=== PATIENT | female | born 1990 | race Caucasian/White ===

== ENCOUNTER → 2021-02-23 | Outpatient (CLI) | payer OTHER ==
--- NOTE | 2021-02-25 08:43 | ECHO ---
ECHOCARDIOGRAM DATE OF PROCEDURE: 02/23/2021 Age: 30 Gender: Female Height: 61 inches Weight: 121 pounds Body surface area: 1.52 m2 PATIENT LOCATION: Outpatient. REFERRING PHYSICIAN: Karli Guerrero M.D. INDICATION: Family history of congenital heart disease. MEASUREMENTS: 2D Measurements: RV - 2.8 cm LV - 3.6 cm Septum 0.9 cm Posterior wall 0.9 cm Aortic root 3.1 cm LA - 3.0 cm LVEF 75% Doppler Measurements: AV - 1.31 m/sec LVOT - 0.95 m/sec LVOT diameter 2.0 cm MV-E 90, A 85, EA ratio 1.1 Early mitral deceleration time 143 msec E prime medial 10.2 A prime medal 13.9 E prime lateral 15.6 PV - 0.9 m/sec Pulmonary artery acceleration time 158 msec PASP 12 mmHg IVC - 1.3 cm COMMENTS: Normal sinus rhythm without interventricular conduction disturbance. M-mode and 2-dimensional echocardiography was performed with pulse, continuous wave, color flow and tissue Doppler studies. Normal left ventricular size and wall thickness and hyperkinetic wall motion. Normal left atrial size and Doppler assessment of left ventricular (LV) diastolic function and estimated mean left atrial pressure. Normal right heart chamber sizes and motion and estimated pulmonary arterial pressure. Normal inferior vena cava (IVC) size and collapse against an elevated central venous pressure. Normal aortic dimensions. Normal appearing and functioning aortic valve. Normal appearing and functioning mitral valve with very mild insufficiency (physiologic). Normal appearing tricuspid valve. No apparent intracardiac mass or pericardial effusion. Some thinning of the mid portion of the interatrial septum, but could not clearly visualize a patent foramen ovale or septal defect. No other evidence in intracardiac shunting.
== END ==
LOC: M CARPUL 11:39
PROVIDERS: ATTEND Family Medicine
DX: Q24.9 Congenital malformation of heart, unspecified (principal)

== ENCOUNTER → 2021-06-05 | Outpatient (REF) | payer OTHER | LOC: M LAB REF 21:02 | PROVIDERS: ATTEND Family Medicine | DX: J01.90 Acute sinusitis, unspecified (principal) ==

== ENCOUNTER → 2024-09-27 | Outpatient (REF) | payer OTHER ==
[2024-09-27 13:32] LABS: APPEARANCE, URINE HAZY (CLEAR); BACTERIA, URINE AUTO 1+ (NEGATIVE); BILIRUBIN, URINE AUTO NEGATIVE (NEGATIVE); BLOOD, URINE BLOOD 1+ (NEGATIVE); COLOR, URINE YELLOW (YELLOW); GLUCOSE, URINE (UA) AUTO NEGATIVE (NEGATIVE); KETONE, URINE AUTO NEGATIVE (NEGATIVE); LEUKOCYTE ESTERASE, URINE AUTO 1+ (NEGATIVE); MUCUS, URINE SMALL (NEGATIVE); NITRITE, URINE AUTO NEGATIVE (NEGATIVE); PROTEIN, URINE AUTO NEGATIVE (NEGATIVE); RBC, URINE AUTO 27 /HPF (0-3); SPECIFIC GRAVITY URINE AUTO 1.018 (1.002-1.035); SQUAMOUS EPITHELIAL CELL UR AU 7 /HPF (0-6); UROBILINOGEN, URINE AUTO 0.2 mg/dL (0.0-2.0); WBC, URINE AUTO 12 /HPF (0-3)
[2024-09-27 14:12] LABS: Trichomonas vaginalis (AMP) POSITIVE (NEGATIVE)
[2024-09-27 14:46] LABS: GC DNA AMPLIFICATION NEGATIVE (NEGATIVE)
== END ==
LOC: M LAB REF 12:31
PROVIDERS: ATTEND Physician Assistant Medical
DX: N39.0 Urinary tract infection, site not specified (principal)

== ENCOUNTER → 2024-11-05 | Outpatient (REF) | payer OTHER ==
[2024-11-05 14:12] LABS: Trichomonas vaginalis (AMP) NOT DETECTED (NEGATIVE)
[2024-11-05 14:36] LABS: GC DNA AMPLIFICATION NEGATIVE (NEGATIVE)
== END ==
LOC: M LAB REF 12:11
PROVIDERS: ATTEND Physician Assistant
DX: Z20.2 Contact with and (suspected) exposure to infections with a predominantly sexual mode of transmission (principal)

== ENCOUNTER → 2025-01-31 | Outpatient (CLI) | payer OTHER ==
[2025-01-31 10:30] LABS: BASO # 0.1 10^3/uL (0.0-0.2); BASO % 0.8 % (0.0-1.0); EOS # 0.1 10^3/uL (0.0-0.5); EOS % 1.0 % (0.0-3.0); LYMPH # 1.2 10^3/uL (1.5-5.0); LYMPH % 14.9 % (24.0-44.0); MONO # 0.5 10^3/uL (0.0-0.8); MONO % 6.2 % (2.0-8.0); NEUTROPHILS # 6.1 10^3/uL (1.5-8.5); NEUTROPHILS % 76.8 % (36.0-66.0); PLATELET COUNT, AUTOMATED 146 10^3/uL (150-450)
[2025-01-31 10:45] LABS: ESTIMATED AVERAGE GLUCOSE 94.0 MG/DL (60-110)
[2025-01-31 10:59] LABS: CHOLESTEROL LEVEL 175.0 MG/DL (<200); CHOLESTEROL RISK RATIO 2.14 (<5); IRON (FE) 50.0 UG/DL (50-170); LDL CHOLESTEROL 82.9 MG/DL (<100); NON-HDL-C 93.5 MG/DL; PERCENT SATURATION 13.1 % (13.2-45.0); TRIGLYCERIDES LEVEL 53.0 MG/DL (<150)
[2025-01-31 11:00] LABS: FREE T4 1.32 NG/DL (0.89-1.76)
[2025-01-31 11:01] LABS: TOTAL 25(OH) VITAMIN D 36.4 NG/ML (20.0-100.0)
[2025-01-31 11:02] LABS: VITAMIN B12 LEVEL 722.0 PG/ML (211-911)
== END ==
LOC: M LAB 09:51
PROVIDERS: ATTEND Physician Assistant
DX: E55.9 Vitamin D deficiency, unspecified (principal); Z13.29 Encounter for screening for other suspected endocrine disorder; Z13.220 Encounter for screening for lipoid disorders; Z13.0 Encounter for screening for diseases of the blood and blood-forming organs and certain disorders involving the immune mechanism

== ENCOUNTER → 2025-03-23 | Outpatient (REF) | payer OTHER | LOC: M LAB REF 10:10 | PROVIDERS: ATTEND Physician Assistant | DX: B37.31 Acute candidiasis of vulva and vagina (principal) ==

== ENCOUNTER → 2025-07-05 | Outpatient (REF) | payer OTHER ==
[2025-07-05 18:35] LABS: APPEARANCE, URINE HAZY (CLEAR); BACTERIA, URINE AUTO 1+ (NEGATIVE); BILIRUBIN, URINE AUTO NEGATIVE (NEGATIVE); BLOOD, URINE BLOOD NEGATIVE (NEGATIVE); GLUCOSE, URINE (UA) AUTO NEGATIVE (NEGATIVE); KETONE, URINE AUTO NEGATIVE (NEGATIVE); LEUKOCYTE ESTERASE, URINE AUTO 1+ (NEGATIVE); MUCUS, URINE SMALL (NEGATIVE); NITRITE, URINE AUTO NEGATIVE (NEGATIVE); PROTEIN, URINE AUTO NEGATIVE (NEGATIVE); RBC, URINE AUTO 2 /HPF (0-3); SPECIFIC GRAVITY URINE AUTO 1.017 (1.002-1.035); SQUAMOUS EPITHELIAL CELL UR AU 4 /HPF (0-6); TRANSITIONAL EPITHELIAL AUTO <1 /HPF; UROBILINOGEN, URINE AUTO 0.2 mg/dL (0.0-2.0); WBC, URINE AUTO 6 /HPF (0-3)
== END ==
LOC: M LAB REF 16:59
PROVIDERS: ATTEND Physician Assistant Medical
DX: N39.0 Urinary tract infection, site not specified (principal)